=== PATIENT | female | born 1945 | race Caucasian/White ===

== ENCOUNTER 2016-11-02 10:27 | Day surgery (SDC) | payer MEDICARE, OTHER ==
[~2016-11-02] VITALS: Ht 165.1 cm; Wt 97.0 kg
[~2016-11-02 10:27] MED LIST: CITA20TA11 PO; GABA-502 PO; GLIM4TAB2 PO; HYDR25TA4 PO; LEVO50TA6 PO; LOSA50TA37 PO; METF-496 PO; METO50TA3 PO; OMEP20CA11 PO; SIMV80TA4 PO; Sodium Chloride LOK Flush 10 mL Syringe IV PRN; fentaNYL-PF 50 mCg/mL 2 mL Inj IVPUSH PRN
[2016-11-02] MEDS ORDERED: 0.9% Sodium Chloride 1,000 ML IV ONE (11:50)
[2016-11-02 12:07] VITALS: BP 152/84; PULSE 85; RESP 14; O2SAT 97
[2016-11-02 12:52] VITALS: BP 155/78; PULSE 83; RESP 16; O2SAT 94
[2016-11-02 13:02] VITALS: BP 178/88; PULSE 90; RESP 16; O2SAT 96
--- NOTE | 2016-11-02 13:22 | ENDO ---
[address] [address] ENDOSCOPY PROCEDURE PATIENT: ROSA WORLEY : 1945 MR#: [id number] ADMIT: 11/02/2016 JOB ID: [id number] TYPE OF OPERATION: Colonoscopy, biopsy. PREOPERATIVE DIAGNOSIS: Diarrhea. POSTOPERATIVE DIAGNOSIS: Normal colonoscopy, status post biopsy. ANESTHESIA: Fentanyl 125 mcg, Versed 6 mg IV administered. COMPLICATION: None. BLOOD LOSS: Minimal. DESCRIPTION OF PROCEDURE: After risks and benefits explained to the patient, informed consent was obtained. After anesthesia administered, colonoscope was inserted from the rectum to the terminal ileum, and mucosa carefully examined. Prep of the patient was fair. After the procedure was done, the scope was withdrawn, procedure terminated. FINDINGS: Upon inspection of the anus, no masses, hemorrhoids, or ulcers that were seen. Throughout the entire examination, there were no polyps, masses, or lesions. Biopsies taken of the terminal ileum and random colon. Retroflexion was normal. IMPRESSION: Normal colonoscopy, status post biopsy. RECOMMENDATION: Await pathology results. Follow up in GI clinic as needed.
--- NOTE | 2016-11-05 14:05 | PATH ---
SURGICAL PATHOLOGY Attending Physician:Antonio Kenny MD CASE STATUS: Signed Out PATIENT NAME: ROSA WORLEY PID: [id number] : 1945 DATE COLLECTED:11/02/2016 20:15 SPECIMEN: 1: Ileum, Biopsy 2: Colon, Biopsy CLINICAL HISTORY: 1). TERMINAL ILEUM BIOPSY 2). RANDOM BIOPSY FINAL DIAGNOSIS: 1.TERMINAL ILEUM BIOPSY: FRAGMENTS OF NORMAL-APPEARING TERMINAL ILEUM MUCOSA. Negative for granulomas. Negative for dysplasia and malignancy. 2.RANDOM COLON BIOPSIES: FRAGMENTS OF NORMAL-APPEARING COLON MUCOSA. Negative for significant architectural distortion. Negative for significant inflammation, dysplasia and malignancy. ICD10 code Z87.19 GROSS DESCRIPTION: Received are two formalin-filled containers, both labeled with the patient' s name: A. Received in formalin, labeled with the patient' s name and "TI BX", is one fragment of [place], soft tissue measuring 0.2 x 0.2 x 0.1 cm. The fragment is totally submitted in cassette 1A. B. Received in formalin, labeled with the patient' s name and "random BX", are multiple fragments of [place], soft tissue ranging in size from 0.1 x 0.1 x 0.1 cm to 0.2 x 0.2 x 0.1 cm. All fragments are totally submitted in cassette 2A. ([id number]) MICRO DESCRIPTION: See diagnosis. ICD-9 CODES: CPT CODES: 1: 97113 2: 49428 Electronically Signed Out Troy Rodriguez MD [facility] [address] [facility], [place] [address] Technical component performed at [facility], [address] [place] [address] Ave[address], [address]
== END 2016-11-02 23:59 | disposition home or self-care (01) ==
LOC: END 10:27
PROVIDERS: ATTEND Internal Medicine Gastroenterology
DX: R19.7 Diarrhea, unspecified (principal); R10.13 Epigastric pain; I10 Essential (primary) hypertension; E11.9 Type 2 diabetes mellitus without complications; M06.9 Rheumatoid arthritis, unspecified; Z79.84 Long term (current) use of oral hypoglycemic drugs
CPT/HCPCS: 45380; 88305; 99153; G0500; J7030